=== PATIENT | female | born 1980 | race Two or more races ===

== ENCOUNTER 2024-12-07 10:20 | Inpatient (IN) | payer BC, OTHER ==
[~2024-12-07] VITALS: Ht 174 cm; Wt 87.8 kg
[2024-12-07] MEDS: DEXTROSE 50% SYRINGE 50 ML IV ONE (10:51)
[2024-12-07] MEDS: SODIUM CHLORIDE 0.9% 2,000 ML IV ONE (11:00)
--- NOTE | 2024-12-07 11:04 | ED.PDOC ---
Altered Mental Status HPI Comments 44 Y F, presents to the ED with CC of ALOC. Patient states that she has been experiencing an episode of weakness for x12 hours. Per patients, significant other as of today [id number]; patient is now experiencing confusion. Patients blood sugar reading on the glucometer in triage read at 41 and 44. Patient denies fev er, nausea, chills, or N/V/D. Chief Complaint: ALOC Time Seen by MD: 10:50 Reviewed Notes: Nurses Notes, Medications, Allergies Allergies: Coded Allergies: NO KNOWN ALLERGIES (Unverified , 12/07/24) Information Source: Patient Mode of Arrival: Ambulatory Severity: Mild Timing: Hours Duration: Since onset Quality: None Recent: None Associated Signs and Symptoms: None Past Medical History PAST MEDICAL HISTORY: Denies Surgical History (Other): BBL FLAGMAN History: Denies all FLAGMAN Hx Family History Family History: Unknown Social History Smoker: Other (VAPE) Alcohol: Denies ETOH Use Drugs: Denies Drug Use Lives In: Home Constitutional: reports: fatigue, weakness; denies: chills, diaphoresis, fever, malaise, sweats, others EENTM: denies: blurred vision, double vision, ear bleeding, ear discharge, ear drainage, ear pain, ear ringing, eye pain, eye redness, hearing loss, mouth pain, mouth swelling, nasal discharge, nose bleeding, nose congestion, nose pain, photophobia, tearing, throat pain, throat swelling, voice changes, others Respiratory: denies: cough, hemoptysis, orthopnea, SOB at rest, shortness of breath, SOB with excertion, stridor, wheezing, others Cardiovascular: denies: chest pain, dizzy spells, diaphoresis, Dyspnea on exertion, edema, irregular heart beat, left arm pain, lightheadedness, palpitations, PND, syncope, others Gastrointestinal: denies: abdomen distended, abdominal pain, blood streaked bowels, constipated, diarrhea, dysphagia, difficulty swallowing, hematemesis, melena, nausea, poor appetite, poor fluid intake, rectal bleeding, rectal pain, vomiting, others Genitourinary: denies: abnormal vagina bleeding, burning, dyspareunia, dysuria, flank pain, frequency, hematuria, incontinence, pain, , vagina discharge, urgency, others Neurological: denies: dizziness, fainting, headache, left sided numbness, left sided weakness, numbness, paresthesia, pre-existing deficit, right sided numbness, right sided weakness, seizure, speech problems, tingling, tremors, weakness, others Musculoskeletal: denies: back pain, gout, joint pain, joint swelling, muscle pain, muscle stiffness, neck pain, others Integumetry: denies: bruises, change in color, change in hair/nails, dryness, laceration, lesions, lumps, rash, wounds, others Allergic/Immunocompromised: denies: Difficulty Healing, Frequent Infections, Hives, Itching, others Hematologic/Lymphatic: denies: anemia, blood clots, easy bleeding, easy bruising, swollen glands, others Endocrine: denies: excessive hunger, excessive sweating, excessive thirst, excessive urination, flushing, intolerance to cold, intolerance to heat, unexplained weight gain, unexplained weight loss, others Psychiatric: reports: others (CONFUSION); denies: anxiety, bipolar disorder, depression, hopeless, panic disorder, schizophrenia, sleepless, suicidal All Other Systems: Reviewed and Negative Physical Exam General Appearance: Moderate Distress, Normal HEENT: Normal ENT Inspection, Pharynx Normal, TMs Normal Neck: Full Range of Motion, Non-Tender, Normal, Normal Inspection Respiratory: Chest Non-Tender, Lungs Clear, No Accessory Muscle Use, No Respiratory Distress, Normal Breath Sounds Cardiovascular: No Edema, No JVD, No Murmur, No Gallop, Normal Peripheral Pulses, Regular Rate/Rhythm Breast Exam: Deferred Gastrointestinal: No Organomegaly, Non Tender, No Pulsatile Mass, Normal Bowel Sounds, Soft Genitalia: Deferred Pelvic: Deferred Rectal: Deferred Extremities: No calf tenderness, Normal capillary refill, Normal inspection, Normal range of motion, Non-tender, No pedal edema Musculoskeletal : Apperance: Normal Neurologic: Alert, 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 Was a procedure done?: No Differential Diagnosis (ALOC) Differential Diagnosis: Dehydration, Hypoglycemia, Sepsis X-Ray, Labs, Meds, VS Vital Signs Date Time Temp Pulse Resp B/P (MAP) Pulse Ox O2 Delivery O2 Flow Rate FiO2 12/07/24 11:27 98.2 87 18 108/37 (60) 97 98.2 12/07/24 10:52 98 12/07/24 10:28 97.0 83 16 86/61 (69) 96 71/41 (51) Lab Test 12/07/24 14:42 12/07/24 13:50 12/07/24 11:36 12/07/24 10:46 Range/Units Blood Gas Specimen Type Arterial Blood Gas Sample Site Right radial Blood Gas Patient Temperature 37.0 Arterial Blood Date Drawn [id number] Arterial Blood pH 7.376 7.350-7.450 Arterial Blood Partial Pressure CO2 30.4 L 32.0-45.0 mmHg Arterial Blood Partial Pressure O2 89.0 83.0-108.0 mmHg Arterial Blood HCO3 17.4 L 21.0-28.0 mmol/L Arterial Blood Oxygen Saturation 95.7 94.0-98.0 % Arterial Blood Base Excess -6.4 L -2.0-3.0 mmol/L Arterial Blood Oxyhemoglobin 94.6 94.0-98.0 % Arterial Blood Carboxyhemoglobin 0.5 0.5-1.5 % Arterial Blood Methemoglobin 0.6 0.0-1.5 % Jay Test Yes Blood Gas Total Hemoglobin 14.30 12.0-16.0 g/dL Blood Gas Modality Room air FiO2 % 21.0 Lactic Acid Level 4.1 *H 0.4-2.0 mmol/L Troponin I High Sensitivity < 3 L </=34 ng/L Plasma/Serum Blood Alcohol 304.4 H <10 mg/dL White Blood Count 14.2 H 4.4-10.8 10^3/uL Red Blood Count 4.53 4.0-5.20 10^6/uL Hemoglobin 13.9 12.2-16.2 g/dL Hematocrit 41.5 36.0-46.0 % Mean Corpuscular Volume 91.7 80.0-100.0 fL Mean Corpuscular Hemoglobin 30.6 28.0-32.0 pg Mean Corpuscular Hemoglobin Concent 33.4 32.0-36.0 g/dL Red Cell Distribution Width 14.5 H 11.8-14.3 % Platelet Count 342 140-450 10^3/uL Mean Platelet Volume 8.4 6.9-10.8 fL Neutrophils (%) (Auto) 83.6 H 37.0-80.0 % Lymphocytes (%) (Auto) 13.7 10.0-50.0 % Monocytes (%) (Auto) 2.2 0.0-12.0 % Eosinophils (%) (Auto) 0.1 0.0-7.0 % Basophils (%) (Auto) 0.4 0.0-2.0 % Neutrophils # (Auto) 11.9 H 1.6-8.6 10 ^3/uL Lymphocytes # (Auto) 2.0 0.4-5.4 10 ^3/uL Monocytes # (Auto) 0.3 0-1.3 10 ^3/uL Eosinophils # (Auto) 0 0-0.8 10 ^3/uL Basophils # (Auto) 0.1 0-0.2 10 ^3/uL Nucleated Red Blood Cells 0.1 % Sodium Level 144 136-145 mmol/L Potassium Level 4.3 3.5-5.1 mmol/L Chloride Level 109 H 98-107 mmol/L Carbon Dioxide Level 15 L 20-31 mmol/L Anion Gap 20 H 5-15 Blood Urea Nitrogen 14 9-23 mg/dL Creatinine 0.85 0.550-1.02 mg/dL Glomerular Filtration Rate Calc 86 >90 mL/min BUN/Creatinine Ratio 16.5 10.0-20.0 Serum Glucose 44 *L 74-106 mg/dL Calcium Level 9.0 8.7-10.4 mg/dL Patient alert. Answering questions. Hypotensive on arrival. Answering questions. Establish intravenous access. Was given fluids. Blood sugar low. Was given juice. No sign of any injury. Symptoms started this morning. Explained to the patient. Continue cardiac monitoring. EKG reviewed does not show any acute changes. Time of 1ST Reevaluation: 11:20 Reevaluation 1ST: Unchanged Patient Education/Counseling: Diagnosis, Treatment Family Education/Counseling: No Family Present Departure 1 Departure Time of Disposition: 11:07 Impression: Primary Impression: Hypotension Qualified Codes: I95.9 - Hypotension, unspecified Additional Impressions: Alcohol abuse Hypoglycemia Disposition: ADMITTED INPATIENT Admit to: Med Surg Condition: Guarded Critical Care Note Critical Care Time?: No Stability Stability form required: No Heart Score Heart Score: Heart Score Response (Comments) Value History Slightly Suspicious 0 EKG Normal 0 Age <45 0 Risk Factors No known risk factors 0 Troponin Normal limit 0 Total 0 I personally scribed for PING OSORIO MD ([email or web address]) on 12/07/24 at 11:04. Electronically submitted by Tiana Aleman ([email or web address]). PING OSORIO MD Dec 07, 2024 11:04
[2024-12-07 11:10] LABS: Basophils # (auto) 0.1 10 ^3/uL (0-0.2); Basophils % (auto) 0.4 % (0.0-2.0); Eosinophils # (auto) 0 10 ^3/uL (0-0.8); Eosinophils % (auto) 0.1 % (0.0-7.0); Hematocrit 41.5 % (36.0-46.0); Hemoglobin 13.9 g/dL (12.2-16.2); Lymphocytes % (auto) 13.7 % (10.0-50.0); Mean Corpuscular Hemoglobin 30.6 pg (28.0-32.0); Mean Corpuscular Hgb Conc. 33.4 g/dL (32.0-36.0); Mean Corpuscular Volume 91.7 fL (80.0-100.0); Monocytes # (auto) 0.3 10 ^3/uL (0-1.3); Monocytes % (auto) 2.2 % (0.0-12.0); Neutrophils # (auto) 11.9 10 ^3/uL (1.6-8.6); Neutrophils % (auto) 83.6 % (37.0-80.0); Nucleated Red Blood Cells % 0.1 %; Platelet Count (auto) 342 10^3/uL (140-450); Red Blood Cells 4.53 10^6/uL (4.0-5.20); Red Cell Distribution Width 14.5 % (11.8-14.3); White Blood Cell 14.2 10^3/uL (4.4-10.8)
[2024-12-07 12:10] LABS: Sodium 144 mmol/L (136-145)
[2024-12-07 12:11] LABS: Anion Gap 20 (5-15)
[2024-12-07 12:13] LABS: Carbon Dioxide 15 mmol/L (20-31); Chloride 109 mmol/L (98-107)
[2024-12-07 12:14] LABS: Potassium 4.3 mmol/L (3.5-5.1)
[2024-12-07 12:21] LABS: Glucose 44 mg/dL (74-106)
[2024-12-07 12:56] LABS: BUN/Creatinine Ratio 16.5 (10.0-20.0); Blood Urea Nitrogen 14 mg/dL (9-23)
--- NOTE | 2024-12-07 14:07 | ECG ---
[facility] Test Date: 2024-12-07 Test Time: 10:52:23 Pat Name: JOAQUÍN ZARAGOZA Department: ER Room: [facility] Gender: F Fire Engineer: THU : 1980 Requested By: PING OSORIO Order Number: [id number] Reading MD: Lencho Cid Measurements Intervals [place] Rate: 98 P: 84 FL: 148 QRS: 105 QRSD: 103 T: -27 QT: 394 QTc: 504 Interpretive Statements Sinus rhythm Consider left atrial enlargement Right axis deviation Borderline repolarization abnormality Borderline prolonged QT interval Electronically Signed On 12-08-2024 18:24:30 PST by Lencho Cid Please click the below link to view image of tracing.
[2024-12-07] MEDS ORDERED: ONDANSETRON HCL 4 MG/2 ML VIAL IV PRN (14:15)
[2024-12-07] MEDS ORDERED: DOCUSATE SOD 100 MG CAP PO PRN (14:15)
[2024-12-07] MEDS ORDERED: HYDROcodone-ACET 5/325MG TAB PO PRN (14:15)
[2024-12-07 14:47] LABS: Lactic Acid w/Reflex 4.1 mmol/L (0.4-2.0)
[2024-12-07 14:49] LABS: Base Excess -6.4 mmol/L (-2.0-3.0)
--- NOTE | 2024-12-07 16:24 | DVHHP2 ---
History of Present Illness Reason for Visit: Hypotension History of Present Illness The patient is a 44 old female with past medical history of alcohol abuse who presented to [facility] ED for evaluation of altered level of consciousness. Patient reports she woke up this morning altered, unable to recall anything, experiencing episodes of weakness, confusion state, fatigue, admits to drinking heavy alcohol yesterday. Patient was seen and evaluated in the ED, laboratory data shows WBC 14.2, lactic acid 4.1, platelets 342, sodium 144, potassium 4.3 BUN 14, creatinine 0.85, GFR 86, glucose 44, anion gap 20, troponin 3, serum alcohol 304.4, blood pressure 86/61, pulse 87, temperature 98.2 F, O2 saturation 97% on room air. Patient was bolus normal saline IV fluid, please see medication orders section in the computer. On my assessment, patient denied chest pain, no headache, no dizziness, no diaphoresis, no tremors, no shortness of breath, no abdominal pain, no diarrhea, no nausea, no vomiting, no fever, no chills. Patient was admitted for further evaluation and medical management. Past Medical History EtOH abuse Past Surgical History BBL Family History Reviewed, noncontributory to the management of this case. Past Social History Patient lives at home, uses vape, drinks alcohol heavily, denies illicit drugs abuse. Review of Systems Constitutional: Yes: Weakness, Other (Fatigue); No: Fever, Chills, Sweats, Malaise Eyes: No: Pain, Vision change, Conjunctivae inflammation, Eyelid inflammation, Other, Redness ENT: No: Ear pain, Ear discharge, Nose pain, Nose discharge, Nose congestion, Mouth pain, Mouth swelling, Throat pain, Throat swelling, Other Respiratory: No: Cough, Dry, Shortness of breath, SOB with excertion, Wheezing, Hemoptysis, Pleuritic Pain, Sputum, Wheezing, Other Cardiovascular: No: Chest Pain, Palpitations, Orthopnea, Paroxysmal Noc. Dyspnea, Edema, Lt Headedness, Other Gastrointestinal: No: Nausea, Vomiting, Abdominal Pain, Diarrhea, Constipation, Melena, Hematochezia, Other Genitourinary: No Dysuria, No Frequency, No Incontinence, No Hematuria, No Retention, No Other Musculoskeletal: No: other, neck pain, shoulder pain, arm pain, back pain, hand pain, leg pain, foot pain Skin: No: Rash, Lesions, Jaundice, Bruising, Other Neurological: Confusion; No: Weakness, Numbness, Incoordination, Change in speech, Seizures, Other Allergies: Coded Allergies: NO KNOWN ALLERGIES (Unverified , 12/07/24) Medications Current Medications Medications Dose Ordered Sig/Darron Route Start Time Stop Time Status Last Admin Dose Admin Thiamine HCl 100 mg DAILY IV 12/08/24 10:00 Folic Acid 1 mg/ Dextrose 50.2 ml @ 200.8 mls/ hr DAILY INJ 12/08/24 10:00 Multivitamins 1 tab DAILY PO 12/08/24 10:00 Dextrose/Sodium Chloride 1,000 ml @ 100 mls/hr Q10H IV 12/07/24 14:15 Acetaminophen/ Hydrocodone Bitart 1 tab Q4HP PRN PO 12/07/24 14:15 Ondansetron HCl 4 mg Q4HP PRN IV 12/07/24 14:15 Docusate Sodium 100 mg BIDPRN PRN PO 12/07/24 14:15 Acetaminophen 650 mg Q6HP PRN PO 12/07/24 14:15 Exam Vital Signs Vital Signs Date Time Temp Pulse Resp B/P (MAP) Pulse Ox O2 Delivery O2 Flow Rate FiO2 12/07/24 15:45 98.3 100 19 147/82 (103) 98 98.3 General Appearance: Alert, Oriented X3, Cooperative, No acute distress HEENT: Atraumatic, PERRLA, EOMI, Mucous membr. moist/pink Respiratory: Clear to auscultation, Normal air movement Cardiovascular: Regular rate, Normal S1, Normal S2, No murmurs Abdominal: Normal bowel sounds, Soft, No tenderness, No hepatospenomegaly, No masses Extremities: No clubbing, No cyanosis, No edema, Normal pulses, No tenderness/swelling Skin: No rashes, No breakdown, No significant lesion Neuro: Normal speech, Normal tone, Sensation intact, Cranial nerves 3-12 NL, Reflexes 2+, Other (Generalized weakness) Psych/Mental Status: Mental status NL, Mood NL Labs/Xrays Labs Test 12/07/24 16:06 12/07/24 14:42 12/07/24 11:36 12/07/24 10:46 Range/Units Blood Gas Specimen Type Arterial Blood Gas Sample Site Right radial Blood Gas Patient Temperature 37.0 Arterial Blood Date Drawn [id number] Arterial Blood pH 7.376 7.350-7.450 Arterial Blood Partial Pressure CO2 30.4 L 32.0-45.0 mmHg Arterial Blood Partial Pressure O2 89.0 83.0-108.0 mmHg Arterial Blood HCO3 17.4 L 21.0-28.0 mmol/L Arterial Blood Oxygen Saturation 95.7 94.0-98.0 % Arterial Blood Base Excess -6.4 L -2.0-3.0 mmol/L Arterial Blood Oxyhemoglobin 94.6 94.0-98.0 % Arterial Blood Carboxyhemoglobin 0.5 0.5-1.5 % Arterial Blood Methemoglobin 0.6 0.0-1.5 % Jay Test Yes Blood Gas Total Hemoglobin 14.30 12.0-16.0 g/dL Blood Gas Modality Room air FiO2 % 21.0 Troponin I High Sensitivity < 3 L </=34 ng/L Plasma/Serum Blood Alcohol 304.4 H <10 mg/dL White Blood Count 14.2 H 4.4-10.8 10^3/uL Red Blood Count 4.53 4.0-5.20 10^6/uL Hemoglobin 13.9 12.2-16.2 g/dL Hematocrit 41.5 36.0-46.0 % Mean Corpuscular Volume 91.7 80.0-100.0 fL Mean Corpuscular Hemoglobin 30.6 28.0-32.0 pg Mean Corpuscular Hemoglobin Concent 33.4 32.0-36.0 g/dL Red Cell Distribution Width 14.5 H 11.8-14.3 % Platelet Count 342 140-450 10^3/uL Mean Platelet Volume 8.4 6.9-10.8 fL Neutrophils (%) (Auto) 83.6 H 37.0-80.0 % Lymphocytes (%) (Auto) 13.7 10.0-50.0 % Monocytes (%) (Auto) 2.2 0.0-12.0 % Eosinophils (%) (Auto) 0.1 0.0-7.0 % Basophils (%) (Auto) 0.4 0.0-2.0 % Neutrophils # (Auto) 11.9 H 1.6-8.6 10 ^3/uL Lymphocytes # (Auto) 2.0 0.4-5.4 10 ^3/uL Monocytes # (Auto) 0.3 0-1.3 10 ^3/uL Eosinophils # (Auto) 0 0-0.8 10 ^3/uL Basophils # (Auto) 0.1 0-0.2 10 ^3/uL Nucleated Red Blood Cells 0.1 % Sodium Level 144 136-145 mmol/L Potassium Level 4.3 3.5-5.1 mmol/L Chloride Level 109 H 98-107 mmol/L Carbon Dioxide Level 15 L 20-31 mmol/L Anion Gap 20 H 5-15 Blood Urea Nitrogen 14 9-23 mg/dL Creatinine 0.85 0.550-1.02 mg/dL Glomerular Filtration Rate Calc 86 >90 mL/min BUN/Creatinine Ratio 16.5 10.0-20.0 Serum Glucose 44 *L 74-106 mg/dL Calcium Level 9.0 8.7-10.4 mg/dL Assessment/Plan Assessment/Plan Hypotension Hypotension, unspecified Alcohol abuse Hypoglycemia Generalized weakness Plan 1. Admit to telemetry unit 2. Breathing treatment 3. Pain control management 4. Management of fluids and electrolytes 5. Consultation for hospitalist 6. Diagnostic tests chest x-ray 7. DVT prophylaxis on SCDs 8. Repeat labs CBC, CMP in a.m. 9. Continue with current medical management 10. Treatment plan discussed with patient and RN. Patient verbalized understanding. Plan discussed with: Patient, Other (RN) My Orders Orders - DENNIS ADAME DNP Procedure Category Date Status Time Thiamine Inj PHA 12/08/24 In Process 10:00 Folic Acid PHA 12/08/24 In Process 10:00 Multiple Vitamin PHA 12/08/24 In Process Tablet (Mvi Tab) 10:00 D5w/Sod Chl 0.45% PHA 12/07/24 In Process (D5w 1/2ns) 14:15 Allergies GENE 12/07/24 In Process 14:11 Code Status CODE 12/07/24 Transmitted 14:11 Oxygen Per Hour RT 12/07/24 Transmitted 14:11 Hydrocodone-Acet PHA 12/07/24 In Process 5/325mg Tab ([place] 14:15 Ondansetron Hcl PHA 12/07/24 In Process (Zofran) 14:15 Docusate Sodium PHA 12/07/24 In Process Capsule (Colace 14:15 Fall Risk Precautions GENE 12/07/[address] 14:11 Complete Blood Count LAB 12/08/24 Verified 04:00 Comprehensive LAB 12/08/24 Verified Metabolic Panel 04:00 Cardiac DIET 12/07/24 Transmitted Diet-2gna,Lofat,Lochol Dinner Condition: Serious GENE 12/07/24 In Process 14:11 Acetaminophen Tablet PHA 12/07/24 In Process (Tylenol Tablet) 14:15 Sequential GENE 12/07/24 In Process Compression Device Abg W/ Co-Ox RT 12/07/24 Logged 14:38 Problem List: (1) Hypotension (2) Hypotension, unspecified (3) Hypoglycemia (4) Alcohol abuse (5) Generalized weakness Date of Service: Dec 07, 2024 Billing Provider: DENNIS ADAME DNP Common Visit Codes: [id number] INP/OBS CARE (HIGH) DENNIS ADAME DNP Dec 07, 2024 16:24
[2024-12-07] MEDS ORDERED: MORPHINE SULFATE INJ 2 MG/ml SYRG IV PRN (16:30)
[2024-12-07] MEDS ORDERED: NITROGLYCERIN 0.4 MG SL TAB SL PRN (16:30)
[2024-12-07] MEDS: DEXTROSE (50%) 50ML SYRG IV ONE (17:00)
[2024-12-07] MEDS: MULTIPLE VITAMIN TAB PO ONE (17:00)
[2024-12-07] MEDS: SODIUM CHLORIDE 0.9% 1,000 ML IV ONE (17:00)
[2024-12-07] MEDS: D5W/SOD CHL 0.45% 1,000 ML IV SCH (17:00)
[2024-12-07] MEDS: THIAMINE 100mg/ml INJ (200mg/2ml VIAL) IV ONE ×2 (17:00→20:37)
[2024-12-07] MEDS: FOLIC ACID 1 MG in D5W 5% 50 ML INJ ONE (17:00)
[2024-12-07 19:58] VITALS: PULSE 103; RESP 17; O2SAT 97
[2024-12-07] MEDS: SODIUM BICARB 8.4% 50Meq/50ml SYR Vial IV ONE (20:22)
[2024-12-07 23:00] VITALS: BP 139/69; PULSE 83; RESP 18; TEMP 97.6; O2SAT 94
[2024-12-07 23:12] VITALS: BP 139/69; PULSE 81; RESP 18; TEMP 97.8; O2SAT 97
[2024-12-08] VITALS (8 sets, daily range): BP systolic 123–144; BP diastolic 54–69; PULSE 63–83; RESP 17–19; TEMP 97.6–98.3; O2SAT 94–98
[2024-12-08 02:46] LABS: Urine WBC None Seen /hpf (0 - 5)
[2024-12-08 03:39] LABS: Urine Amorphous Crystal MANY /hpf (None Seen); Urine Bacteria FEW /hpf (None Seen); Urine Blood Negative /uL (Negative); Urine Clarity Ex.Turbid (Clear); Urine Color Light-Orange (Yellow); Urine Mucus FEW (None Seen); Urine Protein, UAD TRACE (Negative); Urine Specific Gravity 1.032 (1.001-1.035); Urine Squamous Epithelial Cell None Seen /hpf (<5); Urine Urobilinogen Normal (Negative); Urine pH 5.5 (5.0-9.0)
[2024-12-08 06:53] LABS: Basophils # (auto) 0 10 ^3/uL (0-0.2); Basophils % (auto) 0.3 % (0.0-2.0); Eosinophils # (auto) 0 10 ^3/uL (0-0.8); Eosinophils % (auto) 0.2 % (0.0-7.0); Hematocrit 36.6 % (36.0-46.0); Hemoglobin 12.4 g/dL (12.2-16.2); Lymphocytes # (auto) 0.9 10 ^3/uL (0.4-5.4); Lymphocytes % (auto) 13.7 % (10.0-50.0); Mean Corpuscular Hemoglobin 30.6 pg (28.0-32.0); Mean Corpuscular Hgb Conc. 33.8 g/dL (32.0-36.0); Mean Corpuscular Volume 90.5 fL (80.0-100.0); Monocytes # (auto) 0.5 10 ^3/uL (0-1.3); Monocytes % (auto) 8.2 % (0.0-12.0); Neutrophils # (auto) 5.1 10 ^3/uL (1.6-8.6); Neutrophils % (auto) 77.6 % (37.0-80.0); Nucleated Red Blood Cells % 0.1 %; Platelet Count (auto) 265 10^3/uL (140-450); Red Blood Cells 4.05 10^6/uL (4.0-5.20); Red Cell Distribution Width 14.2 % (11.8-14.3); White Blood Cell 6.6 10^3/uL (4.4-10.8)
[2024-12-08 07:24] LABS: Alanine Aminotransferase 18 U/L (7-40); Alkaline Phosphatase 50 U/L (46-116); Anion Gap 9 (5-15); Aspartate Aminotransferase 22 U/L (13-40); BUN/Creatinine Ratio 20.3 (10.0-20.0); Bilirubin, Total 0.8 mg/dL (0.2-1.0); Blood Urea Nitrogen 13 mg/dL (9-23); Calcium 9.2 mg/dL (8.7-10.4); Carbon Dioxide 25 mmol/L (20-31); Chloride 106 mmol/L (98-107); Glucose 98 mg/dL (74-106); Potassium 3.5 mmol/L (3.5-5.1); Sodium 140 mmol/L (136-145)
[2024-12-08 07:25] LABS: Total Protein 6.5 g/dL (5.7-8.2)
[2024-12-08] MEDS: MULTIPLE VITAMIN TAB PO SCH (09:18)
[2024-12-08] MEDS: THIAMINE 100mg/ml INJ (200mg/2ml VIAL) IV SCH (09:19)
[2024-12-08] MEDS: FOLIC ACID 1 MG in D5W 5% 50 ML INJ SCH (10:00)
[2024-12-08] MEDS: chlordiazePOXIDE HCL 25 MG CAP PO SCH (12:00)
--- NOTE | 2024-12-08 12:07 | DVHPN2 ---
Reviewed: Care Plan, H&P, Labs, Medications, Previous Orders, Radiology Changes from previous H/P or p: No Changes Eyes: No Pain, No Vision change, No Conjunctivae inflammation, No Eyelid inflammation, No Other, No Redness ENT: No Ear pain, No Ear discharge, No Nose pain, No Nose discharge, No Nose congestion, No Mouth pain, No Mouth swelling, No Throat pain, No Throat swelling, No Other Cardiovascular: No Chest Pain, No Palpitations, No Orthopnea, No Paroxysmal Noc. Dyspnea, No Edema, No Lt Headedness, No Other Respiratory: No Cough, No Dry, No Shortness of breath, No SOB with excertion, No Wheezing, No Hemoptysis, No Pleuritic Pain, No Sputum, No Other Gastrointestinal: No Nausea, No Vomiting, No Abdominal Pain, No Diarrhea, No Constipation, No Melena, No Hematochezia, No Other Genitourinary: No Dysuria, No Frequency, No Incontinence, No Hematuria, No Retention, No Other Musculoskeletal: No other, No neck pain, No shoulder pain, No arm pain, No back pain, No hand pain, No leg pain, No foot pain Skin: No Rash, No Lesions, No Jaundice, No Bruising, No Other Objective Vitals Vital Signs Date Time Temp Pulse Resp B/P (MAP) Pulse Ox O2 Delivery O2 Flow Rate FiO2 12/08/24 08:30 98.3 66 17 143/63 (89) 98 98.3 12/07/24 23:12 Room Air* 0 21 Intake/Output Intake and Output 12/08/24 07:00 Intake Total 600.8 ml Balance 600.8 ml Intake Oral 400 ml IV Total 200.8 ml # Voids 1 Medications Current Medications Medications Dose Ordered Sig/Darron Route Start Time Stop Time Status Last Admin Dose Admin Thiamine HCl 100 mg DAILY IV 12/08/24 10:00 12/08/24 09:19 100 MG Folic Acid 1 mg/ Dextrose 50.2 ml @ 200.8 mls/ hr DAILY INJ 12/08/24 10:00 Multivitamins 1 tab DAILY PO 12/08/24 10:00 12/08/24 09:18 1 TAB Dextrose/Sodium Chloride 1,000 ml @ 100 mls/hr Q10H IV 12/07/24 14:15 12/08/24 00:15 100 MLS/HR Acetaminophen/ Hydrocodone Bitart 1 tab Q4HP PRN PO 12/07/24 14:15 Ondansetron HCl 4 mg Q4HP PRN IV 12/07/24 14:15 Docusate Sodium 100 mg BIDPRN PRN PO 12/07/24 14:15 Acetaminophen 650 mg Q6HP PRN PO 12/07/24 14:15 Nitroglycerin 0.4 mg Q5MINP PRN SL 12/07/24 16:30 Morphine Sulfate 2 mg Q30M PRN IV 12/07/24 16:30 Laboratory Results Laboratory Tests 12/08/24 05:30 Chemistry Test 12/08/24 05:30 Albumin 4.0 g/dL (3.2-4.8) Calcium Level 9.2 mg/dL (8.7-10.4) Total Protein 6.5 g/dL (5.7-8.2) LFT Test 12/08/24 05:30 Alanine Aminotransferase (ALT) 18 U/L (7-40) Alkaline Phosphatase 50 U/L (46-116) Aspartate Amino Transferase (AST) 22 U/L (13-40) Total Bilirubin 0.8 mg/dL (0.2-1.0) Urinalysis Test 12/07/24 01:15 Urine Color Light-orange (Yellow) Urine Clarity Ex.turbid (Clear) Urine pH 5.5 (5.0-9.0) Urine Specific [place] 1.032 (1.001-1.035) Urine Protein Trace (Negative) H Urine Ketones 1+ (Negative) H Urine Blood Negative /uL (Negative) Urine Nitrite Negative (Negative) Urine Bilirubin Negative (Negative) Urine Urobilinogen Normal mg/dL (Negative) Urine Leukocyte Esterase Negative /uL (Negative) Urine RBC 2 /hpf (0 - 4) Urine WBC None seen /hpf (0 - 5) Urine Squamous Epithelial Cells None seen /hpf (<5) Urine Amorphous Crystals Many /hpf (None Seen) Urine Bacteria Few /hpf (None Seen) H Urine Mucus Few (None Seen) Urine Glucose Normal mg/dL (Normal) Blood Gas Results Test 12/07/24 14:42 Arterial Blood pH 7.376 (7.350-7.450) FiO2 % 21.0 Labs and/or images reviewed: Labs reviewed by me, Image(s) reviewed by me Assessment/Plan Assessment/Plan Acute alcohol intoxication with a blood alcohol through 304 Acute metabolic encephalopathy Acute lactic acidosis Sepsis secondary to possible aspiration pneumonia: Blood cultures chest x-ray Zosyn Chronic current alcohol abuse: Counseling, thiamine folic acid multivitamin Acute hyperglycemia glucose of 44 secondary to sepsis: D5 NS Condition guarded Time spent 45 minutes Pts boy friend Ryan bedside RN at bedside Plan discussed with: Patient My Orders Orders - RAMON MCKOY MD Procedure Category Date Status Time Lipase LAB 12/08/24 Logged 11:53 Ammonia LAB 12/08/24 Logged 11:53 Ct Ab Pel Wo Con-No CT 12/08/24 Logged Oral Or Iv 11:53 Chlordiazepoxide Hcl PHA 12/08/24 Logged Capsule (Librium Ca 12:00 Chlordiazepoxide Hcl PHA 12/09/24 Logged Capsule (Librium Ca 10:00 Chlordiazepoxide Hcl PHA 12/10/24 Logged Capsule (Librium Ca 10:00 Chlordiazepoxide Hcl PHA 12/11/24 Logged Capsule (Librium Ca 07:00 Date of Service: Dec 08, 2024 Billing Provider: RAMON MCKOY MD Common Visit Codes: [id number] INP/OBS CARE(HIGH) RAMON MCKOY MD Dec 08, 2024 12:07
[2024-12-08 12:42] LABS: Blood Alcohol 3.1 mg/dL (<10)
--- NOTE | 2024-12-08 13:15 | DVH ---
CT ABDOMEN AND PELVIS WITHOUT CONTRAST CLINICAL HISTORY: Acute alcoholic intoxication TECHNIQUE: Multiple contiguous axial images of the abdomen and pelvis without intravenous contrast. The images were reformatted degenerate coronal and sagittal reconstructions. All CT scans at this medical facility are performed using dose modulation techniques as appropriate t o a performed exam including the following:Automated exposure control was utilized; adjustment of the MA and/or KV according to patient size; and use of iterative reconstruction technique. Radiation Dose Information: CT Dose: CTDI volume is 12 mGy. Dose-length product is 698 mGy*cm Comparison: None FINDINGS: Evaluation of the abdomen and pelvis is limited without intravenous contrast. The liver, gallbladder, pancreas, kidneys, adrenal glands, and spleen appear within normal limits. There is no gross evidence of abdominal lymphadenopathy. There is no free fluid or free air. Are postsurgical changes related to gastric bypass surgery. The small and large bowel loops demonstr ate normal caliber. The abdominal aorta and IVC appear within normal limits. The bladder is poorly filled limiting evaluation. There is an IUD in the uterus. There is a 3.9 x 2.7 cm cystic structure in the posterior right adnexa likely an ovarian cyst.. There is no gross eviden ce of a pelvic mass. There is no free fluid collection. Lung bases are clear. There is no acute osseous abnormality. IMPRESSION: 1. There is no acute process in the abdomen and pelvis. 2. 3.9 x 2.7 cm cystic structure in the posterior right adnexa likely ovarian cyst. Further evaluatio n with dedicated pelvic ultrasound is recommended. HS:Y
--- NOTE | 2024-12-08 13:26 | DVH ---
CHEST RADIOGRAPH Indication: Sepsis Technique: Single frontal view of the chest was obtained Comparison: None FINDINGS: Lines and Tubes: None Lungs: No focal consolidation. Left basilar linear density. Pleura: No effusion. No pneumothorax. Cardiomediastinal contours: Unremarkable Bones: No acute osseous abnormality. IMPRESSION: Left basilar linear atelectasis. Otherwise, no evidence for acute cardiopulmonary disease.
[2024-12-08 14:38] LABS: Amphetamine Screen, Urine Neg (NEGATIVE); Barbiturate Scree,Urine Neg (NEGATIVE); Benzodiazephine Screen, Urine Neg (NEGATIVE); Cannabinoid Screen, Urine Neg (NEGATIVE); Cocaine Screen, Urine Neg (NEGATIVE); Opiate Scree,Urine Neg (NEGATIVE); Phencyclidine Screen, Urine Neg (NEGATIVE)
[2024-12-08] MEDS: PIPERACILLIN-TAZOB 3.375GM 100 ML IV SCH (14:51)
[2024-12-09] VITALS (8 sets, daily range): BP systolic 113–142; BP diastolic 42–66; PULSE 52–95; RESP 18–19; TEMP 97.6–98.4; O2SAT 97–98
[2024-12-09] MEDS: ACETAMINOPHEN 325 MG TAB PO PRN (06:56)
[2024-12-09] MEDS: chlordiazePOXIDE HCL 25 MG CAP PO SCH (08:33)
--- NOTE | 2024-12-09 11:58 | DVHPN2 ---
Reviewed: Care Plan, H&P, Labs, Medications, Previous Orders, Radiology Changes from previous H/P or p: No Changes Eyes: No Pain, No Vision change, No Conjunctivae inflammation, No Eyelid inflammation, No Other, No Redness ENT: No Ear pain, No Ear discharge, No Nose pain, No Nose discharge, No Nose congestion, No Mouth pain, No Mouth swelling, No Throat pain, No Throat swelling, No Other Cardiovascular: No Chest Pain, No Palpitations, No Orthopnea, No Paroxysmal Noc. Dyspnea, No Edema, No Lt Headedness, No Other Respiratory: No Cough, No Dry, No Shortness of breath, No SOB with excertion, No Wheezing, No Hemoptysis, No Pleuritic Pain, No Sputum, No Other Gastrointestinal: No Nausea, No Vomiting, No Abdominal Pain, No Diarrhea, No Constipation, No Melena, No Hematochezia, No Other Genitourinary: No Dysuria, No Frequency, No Incontinence, No Hematuria, No Retention, No Other Musculoskeletal: No other, No neck pain, No shoulder pain, No arm pain, No back pain, No hand pain, No leg pain, No foot pain Skin: No Rash, No Lesions, No Jaundice, No Bruising, No Other Objective Vitals Vital Signs Date Time Temp Pulse Resp B/P (MAP) Pulse Ox O2 Delivery O2 Flow Rate FiO2 12/09/24 08:33 97.6 59 18 142/52 (82) 97 97.6 12/08/24 20:00 Room Air* 0 21 Intake/Output Intake and Output 12/09/24 07:00 Intake Total 1850.2 ml Balance 1850.2 ml Intake Oral 600 ml IV Total 1250.2 ml # Voids 4 Medications Current Medications Medications Dose Ordered Sig/Darron Route Start Time Stop Time Status Last Admin Dose Admin Thiamine HCl 100 mg DAILY IV 12/08/24 10:00 12/09/24 08:08 100 MG Folic Acid 1 mg/ Dextrose 50.2 ml @ 200.8 mls/ hr DAILY INJ 12/08/24 10:00 12/08/24 10:00 200.8 MLS/HR Multivitamins 1 tab DAILY PO 12/08/24 10:00 12/09/24 08:09 1 TAB Dextrose/Sodium Chloride 1,000 ml @ 100 mls/hr Q10H IV 12/07/24 14:15 12/08/24 14:51 100 MLS/HR Acetaminophen/ Hydrocodone Bitart 1 tab Q4HP PRN PO 12/07/24 14:15 Ondansetron HCl 4 mg Q4HP PRN IV 12/07/24 14:15 Docusate Sodium 100 mg BIDPRN PRN PO 12/07/24 14:15 Acetaminophen 650 mg Q6HP PRN PO 12/07/24 14:15 12/09/24 06:56 650 MG Nitroglycerin 0.4 mg Q5MINP PRN SL 12/07/24 16:30 Morphine Sulfate 2 mg Q30M PRN IV 12/07/24 16:30 Chlordiazepoxide HCl 50 mg Q12HR PO 12/09/24 10:00 12/09/24 22:01 Chlordiazepoxide HCl 25 mg Q12HR PO 12/10/24 10:00 12/10/24 22:01 Chlordiazepoxide HCl 25 mg QAM PO 12/11/24 07:00 12/11/24 07:01 Piperacillin Sod/ Tazobactam Sod 100 ml @ 25 mls/hr Q8HR IV 12/08/24 14:00 12/09/24 09:59 25 MLS/HR Laboratory Results Laboratory Tests 12/08/24 05:30 Urinalysis Test 12/07/24 01:15 Urine Color Light-orange (Yellow) Urine Clarity Ex.turbid (Clear) Urine pH 5.5 (5.0-9.0) Urine Specific [place] 1.032 (1.001-1.035) Urine Protein Trace (Negative) H Urine Ketones 1+ (Negative) H Urine Blood Negative /uL (Negative) Urine Nitrite Negative (Negative) Urine Bilirubin Negative (Negative) Urine Urobilinogen Normal mg/dL (Negative) Urine Leukocyte Esterase Negative /uL (Negative) Urine RBC 2 /hpf (0 - 4) Urine WBC None seen /hpf (0 - 5) Urine Squamous Epithelial Cells None seen /hpf (<5) Urine Amorphous Crystals Many /hpf (None Seen) Urine Bacteria Few /hpf (None Seen) H Urine Mucus Few (None Seen) Urine Glucose Normal mg/dL (Normal) Microbiology Microbiology Date/Time Source Procedure Growth Status 12/08/24 13:59 Voided Urine Urine Culture - Preliminary Resulted 12/07/24 14:00 Blood Blood Culture - Preliminary NO GROWTH AFTER 24 HOURS OF INCUBATION. Resulted Labs and/or images reviewed: Labs reviewed by me, Image(s) reviewed by me Assessment/Plan Assessment/Plan Acute alcohol intoxication with a blood alcohol through 304 patient denies consuming alcohol, but she admitted to the admitting physician that she was drinking alcohol heavily the day before admission Acute metabolic encephalopathy Acute lactic acidosis Sepsis secondary to possible aspiration pneumonia: Blood cultures negative, urine cultures mixed continue Zosyn Chronic current alcohol abuse: Counseling, thiamine folic acid multivitamin Acute hypoglycemia glucose of 44 secondary to sepsis: D5 NS Condition guarded Time spent 45 minutes Pts boy friend Ryan bedside RN at bedside Plan discussed with: Patient My Orders Orders - RAMON MCKOY MD Procedure Category Date Status Time Chest Xray 1 View XY 12/08/24 Resulted 11:55 Blood Culture AMADEO 12/08/24 In Process 11:55 Piperacillin-Tazob PHA 12/08/24 In Process 3.375gm (Zosyn 3.375g 14:00 Urine Bacterial AMADEO 12/08/24 In Process Culture 14:00 Date of Service: Dec 09, 2024 Billing Provider: RAMON MCKOY MD Common Visit Codes: [id number] INP/OBS CARE(HIGH) RAMON MCKOY MD Dec 09, 2024 11:58
[2024-12-09] MEDS: LACTULOSE 20Gm/30ML SOLN PO SCH (14:20)
[2024-12-10 01:15] VITALS: BP 134/67; PULSE 67; RESP 18; TEMP 97.9; O2SAT 98
[2024-12-10 05:18] VITALS: BP 129/57; PULSE 57; RESP 18; TEMP 97.6; O2SAT 100
[2024-12-10 08:00] VITALS: PULSE 78; O2SAT 97
[2024-12-10] MEDS: chlordiazePOXIDE HCL 25 MG CAP PO SCH (08:57)
[2024-12-10 09:00] VITALS: BP 133/61; PULSE 55; RESP 19; TEMP 98; O2SAT 98
[2024-12-10 10:40] LABS: Hepatitis B Surface Antigen Negative (Negative)
[2024-12-10] MEDS ORDERED: FOLI-119 PO (11:22)
[2024-12-10] MEDS ORDERED: THIA100T13 PO (11:22)
[2024-12-10] MEDS ORDERED: CHL25C PO (11:22)
--- NOTE | 2024-12-10 11:28 | DVHDS2 ---
Discharge Summary Date of Admission Dec 07, 2024 at 16:20 Date of Discharge: Dec 10, 2024 Admitting Diagnosis Altered mental status and confusion Wounds: None Labs/Diagnostic Data: Laboratory Results Test 12/09/24 07:19 12/08/24 15:25 12/08/24 13:59 12/08/24 05:30 POC Glucose 94 mg/dl (70-106) Ammonia 56 umol/L (11-32) Urine Opiates Screen Neg (NEGATIVE) Urine Fentanyl Screen Neg (NEGATIVE) Urine Barbiturates Screen Neg (NEGATIVE) Urine Phencyclidine Screen Neg (NEGATIVE) Urine Amphetamines Screen Neg (NEGATIVE) Urine Benzodiazepines Screen Neg (NEGATIVE) Urine Cocaine Screen Neg (NEGATIVE) Urine Cannabinoids Screen Neg (NEGATIVE) White Blood Count 6.6 10^3/uL (4.4-10.8) Red Blood Count 4.05 10^6/uL (4.0-5.20) Hemoglobin 12.4 g/dL (12.2-16.2) Hematocrit 36.6 % (36.0-46.0) Mean Corpuscular Volume 90.5 fL (80.0-100.0) Mean Corpuscular Hemoglobin 30.6 pg (28.0-32.0) Mean Corpuscular Hemoglobin Concent 33.8 g/dL (32.0-36.0) Red Cell Distribution Width 14.2 % (11.8-14.3) Platelet Count 265 10^3/uL (140-450) Mean Platelet Volume 8.2 fL (6.9-10.8) Neutrophils (%) (Auto) 77.6 % (37.0-80.0) Lymphocytes (%) (Auto) 13.7 % (10.0-50.0) Monocytes (%) (Auto) 8.2 % (0.0-12.0) Eosinophils (%) (Auto) 0.2 % (0.0-7.0) Basophils (%) (Auto) 0.3 % (0.0-2.0) Neutrophils # (Auto) 5.1 10 ^3/uL (1.6-8.6) Lymphocytes # (Auto) 0.9 10 ^3/uL (0.4-5.4) Monocytes # (Auto) 0.5 10 ^3/uL (0-1.3) Eosinophils # (Auto) 0 10 ^3/uL (0-0.8) Basophils # (Auto) 0 10 ^3/uL (0-0.2) Nucleated Red Blood Cells 0.1 % Sodium Level 140 mmol/L (136-145) Potassium Level 3.5 mmol/L (3.5-5.1) Chloride Level 106 mmol/L (98-107) Carbon Dioxide Level 25 mmol/L (20-31) Anion Gap 9 (5-15) Blood Urea Nitrogen 13 mg/dL (9-23) Creatinine 0.64 mg/dL (0.550-1.02) Glomerular Filtration Rate Calc 111 mL/min (>90) BUN/Creatinine Ratio 20.3 (10.0-20.0) Serum Glucose 98 mg/dL (74-106) Calcium Level 9.2 mg/dL (8.7-10.4) Total Bilirubin 0.8 mg/dL (0.2-1.0) Aspartate Amino Transferase (AST) 22 U/L (13-40) Alanine Aminotransferase (ALT) 18 U/L (7-40) Alkaline Phosphatase 50 U/L (46-116) Total Protein 6.5 g/dL (5.7-8.2) Albumin 4.0 g/dL (3.2-4.8) Lipase 33 U/L (12-53) Plasma/Serum Blood Alcohol 3.1 mg/dL (<10) Hepatitis B Surface Antigen Negative (Negative) Test 12/07/24 16:06 12/07/24 14:42 12/07/24 11:36 12/07/24 01:15 Lactic Acid Level 4.0 mmol/L (0.4-2.0) Blood Gas Specimen Type Arterial Blood Gas Sample Site Right radial Blood Gas Patient Temperature 37.0 Arterial Blood Date Drawn [id number] Arterial Blood pH 7.376 (7.350-7.450) Arterial Blood Partial Pressure CO2 30.4 mmHg (32.0-45.0) Arterial Blood Partial Pressure O2 89.0 mmHg (83.0-108.0) Arterial Blood HCO3 17.4 mmol/L (21.0-28.0) Arterial Blood Oxygen Saturation 95.7 % (94.0-98.0) Arterial Blood Base Excess -6.4 mmol/L (-2.0-3.0) Arterial Blood Oxyhemoglobin 94.6 % (94.0-98.0) Arterial Blood Carboxyhemoglobin 0.5 % (0.5-1.5) Arterial Blood Methemoglobin 0.6 % (0.0-1.5) Jay Test Yes Blood Gas Total Hemoglobin 14.30 g/dL (12.0-16.0) Blood Gas Modality Room air FiO2 % 21.0 Troponin I High Sensitivity < 3 ng/L (</=34) Urine Color Light-orange (Yellow) Urine Clarity Ex.turbid (Clear) Urine pH 5.5 (5.0-9.0) Urine Specific [place] 1.032 (1.001-1.035) Urine Protein Trace (Negative) Urine Ketones 1+ (Negative) Urine Blood Negative /uL (Negative) Urine Nitrite Negative (Negative) Urine Bilirubin Negative (Negative) Urine Urobilinogen Normal mg/dL (Negative) Urine Leukocyte Esterase Negative /uL (Negative) Urine RBC 2 /hpf (0 - 4) Urine WBC None seen /hpf (0 - 5) Urine Squamous Epithelial Cells None seen /hpf (<5) Urine Amorphous Crystals Many /hpf (None Seen) Urine Bacteria Few /hpf (None Seen) Urine Mucus Few (None Seen) Urine Glucose Normal mg/dL (Normal) Other Laboratory Tests 12/08/24 05:30 Brief Hx & Hospital Course: 44-year-old female with a history of chronic alcohol abuse brought into the ER for altered mental status and confusion found to have blood alcohol of 304. Treated with IV fluids Librium banana bag vitamins lactic acidosis resolved also had sepsis secondary to possible aspiration pneumonia treated with the Zosyn blood cultures negative urine cultures negative. Patient patient had hypoglycemia secondary to sepsis which has resolved. At the time of discharge patient is alert awake oriented x3 ambulating discharged home advised to stop drinking alcohol. And follow up with the primary DrMathew Medications transmitted to the pharmacy. Her boyfriend at the bedside at the time of discharge Consults/Reason for consult None Operations or Procedures CT head Condition at Discharge: Fair Final Diagnosis/Problems List Acute alcohol intoxication with a blood alcohol through 304 patient denies consuming alcohol, but she admitted to the admitting physician that she was drinking alcohol heavily the day before admission Acute metabolic encephalopathy Acute lactic acidosis Sepsis secondary to possible aspiration pneumonia: Blood cultures negative, urine cultures mixed continue Zosyn Chronic current alcohol abuse: Counseling, thiamine folic acid multivitamin Acute hypoglycemia glucose of 44 secondary to sepsis: D5 NS Discharge Disposition: Home Discharge Instruct/Medications Diet: Regular Activity: Light activity Follow Up/Referral: Stop drinking alcohol Follow up with your primary Dr Medications: Thiamine Folic acid Librium Transmitted to pharmacy 39 (Time taken for discharge summary 39 minutes) Discharge Statement: "Patient was advised to return to the ER or call 911 if any headaches, dizziness, shortness of breath, chest pain, abdominal pain, bleeding, fevers, or worsening of medical condition. Patient was counseled about treatment plan, medications, possible side effects, patientverbalized understanding. All questions were answered to the best of my ability. This discharge took greater then 30 minutes in planning, reviewing documentation, counseling the patient, and discussing with other team members." ASSESSMENT ASSESSMENT Hospital Course Improved Assessment Acute alcohol intoxication with a blood alcohol through 304 patient denies consuming alcohol, but she admitted to the admitting physician that she was drinking alcohol heavily the day before admission Acute metabolic encephalopathy Acute lactic acidosis Sepsis secondary to possible aspiration pneumonia: Blood cultures negative, urine cultures mixed continue Zosyn Chronic current alcohol abuse: Counseling, thiamine folic acid multivitamin Acute hypoglycemia glucose of 44 secondary to sepsis: D5 NS Date of Service: Dec 10, 2024 Billing Provider: RAMON MCKOY MD Common Visit Codes: [id number] DISCH DAY >30min RAMON MCKOY MD Dec 10, 2024 11:28
[2024-12-10 11:50] LABS: Hepatitis C Antibody Negative (Negative)
[2024-12-10 12:36] VITALS: BP 134/61; PULSE 53; RESP 19; TEMP 98.9; O2SAT 99
[2024-12-10 13:00] VITALS: BP 134/61; PULSE 53; RESP 19; TEMP 98.4; O2SAT 99
[2024-12-11] MEDS ORDERED: chlordiazePOXIDE HCL 25 MG CAP PO SCH (07:00)
== END 2024-12-10 15:00 | disposition home or self-care (01) | DRG 871 ==
LOC: EDBD 10:20 → ER 10:20 → TELE 16:20 → TELE-WESTW 22:43
PROVIDERS: ADMIT Family Medicine; ATTEND Family Medicine
DX: A41.9 Sepsis, unspecified organism (principal); G93.41 Metabolic encephalopathy; J69.0 Pneumonitis due to inhalation of food and vomit; E87.21 Acute metabolic acidosis; I95.9 Hypotension, unspecified; E16.2 Hypoglycemia, unspecified; F10.129 Alcohol abuse with intoxication, unspecified; F17.290 Nicotine dependence, other tobacco product, uncomplicated; Y90.8 Blood alcohol level of 240 mg/100 ml or more
CPT/HCPCS: 36415; 36600; 71045; 74176; 80048; 80053; 80307; 80320; 81001; 82140; 82805; 82962; 83605; 83690; 84484; 85025; 86803; 87040; 87086; 87340; 93005; 96361; 96365; 96375; G0378; J2543; J7060